=== PATIENT | female | born 1955 | race African-American/Black ===

== ENCOUNTER 2017-05-08 11:01 | Inpatient (IN) | payer OTHER ==
[~2017-05-08] VITALS: Ht 167.6 cm; Wt 89.8 kg
[~2017-05-08 11:01] MED LIST: COLACE100 MG PO; CYMBALTA60 MG PO; HYDROCODONE-AP1 EAC6 PO; KEFLEX500 MG PO; NEURONTIN 300300 M1 PO; NORCO 5-325 TA1 EACH PO; REMERON 30 MG T30 M1 PO; TRAMADOL 50 MG50 MG PO; TRAVATAN Z2.5 ML OPHTHALMIC; VALIUM5 MG PO; XANAX1 MG PO; ZOLPIDEM TARTRA10 MG PO
[2017-05-08 11:02] VITALS: BP 160/86
[2017-05-08 11:43] LABS: URINE BILIRUBIN NEGATIVE (Negative); URINE BLOOD NEGATIVE (Negative); URINE COLOR YELLOW; URINE GLUCOSE-RANDOM* NEGATIVE (Negative); URINE KETONES NEGATIVE (Negative); URINE NITRITE NEGATIVE (Negative); URINE PROTEIN (DIPSTICK) NEGATIVE (Negative); URINE SPECIFIC GRAVITY 1.015 (1.003-1.035); URINE UROBILINOGEN 0.2 E.U./dl (0.2-1.0)
[2017-05-08 11:52] LABS: ABSOLUTE NEUTROPHILS 7.6 thou/uL (1.4-8.2); BASOPHILS 0.9 % (0.0-2.0); HEMATOCRIT 35.1 % (37.0-47.0); HEMOGLOBIN 11.8 gm/dL (12.0-15.0); LYMPHOCYTES 17.1 % (24.0-44.0); MANUAL DIFF NO; MCH 26.8 pg (26.0-34.0); MCHC 33.8 g/dL (28.0-37.0); MCV 79.3 fL (80.0-100.0); PLATELET COUNT 377 thou/uL (150-400); RBC 4.42 mil/uL (4.20-5.00); RDW 18.8 % (10.5-14.5); WBC 10.1 thou/uL (4.0-11.0)
[2017-05-08 11:59] LABS: CALCIUM 9.6 mg/dL (8.5-10.1); CREATININE 1.1 mg/dL (0.6-1.0); POTASSIUM 4.2 mmol/L (3.5-5.1)
[2017-05-08 12:05] LABS: PROTIME 9.9 Seconds (9.3-11.4)
[2017-05-08 12:06] LABS: ALBUMIN 3.9 g/dL (3.4-5.0); MAGNESIUM 1.8 mg/dL (1.8-2.4); PHOSPHORUS 3.2 mg/dL (2.5-4.9); TOTAL BILIRUBIN 0.4 mg/dL (<0.1-1.0); TOTAL PROTEIN 7.9 g/dL (6.4-8.2)
[2017-05-08] MEDS ORDERED: CYMBALTA30 MG PO (12:06)
[2017-05-08] MEDS ORDERED: NEURONTIN 300300 M1 PO (12:06)
[2017-05-08] MEDS ORDERED: NORVASC5 MG PO (12:06)
[2017-05-08] MEDS ORDERED: XANAX1 MG PO (12:07)
[2017-05-08] MEDS ORDERED: REMERON15 MG PO (12:07)
[2017-05-08 13:33] VITALS: BP 151/84
[2017-05-08 14:13] VITALS: BP 134/75
[2017-05-08 14:30] VITALS: BP 158/80
[2017-05-08 20:30] VITALS: BP 129/71
[2017-05-08 23:20] VITALS: BP 116/51
[2017-05-09 00:22] LABS: ABSOLUTE NEUTROPHILS 4.9 thou/uL (1.4-8.2); BASOPHILS 1.3 % (0.0-2.0); EOSINOPHILS 1.3 % (0.0-3.0); HEMOGLOBIN 10.1 gm/dL (12.0-15.0); LYMPHOCYTES 25.7 % (24.0-44.0); MCH 26.7 pg (26.0-34.0); MCHC 33.5 g/dL (28.0-37.0); MCV 79.7 fL (80.0-100.0); MONOCYTES 7.5 % (1.0-8.0); PLATELET COUNT 330 thou/uL (150-400); POLYS 64.2 % (36.0-66.0); RBC 3.76 mil/uL (4.20-5.00); WBC 7.7 thou/uL (4.0-11.0)
[2017-05-09 00:41] LABS: MANUAL DIFF NO
[2017-05-09 04:25] VITALS: BP 115/65
[2017-05-09 08:00] VITALS: BP 118/68
[2017-05-09 16:00] VITALS: BP 125/71
[2017-05-09 20:20] VITALS: BP 124/71
[2017-05-10 04:33] VITALS: BP 115/67
[2017-05-10 07:39] VITALS: BP 115/67
[2017-05-10] MEDS ORDERED: LEVAQUIN 500 M500 M2 PO (08:38)
[2017-05-10 12:36] VITALS: BP 115/67
== END 2017-05-10 13:33 | disposition home or self-care (01) | DRG 815 ==
LOC: ER 11:01 → 3N 13:34 → EROBS 13:34 → 3N 14:13 → ENTRNSPT 05-10 13:24 → EDTRNSPTSTS 05-10 13:29 → 3N 05-10 13:33
PROVIDERS: Hospitalist; Physician Assistant
DX: D89.9 Disorder involving the immune mechanism, unspecified (principal); R65.10 Systemic inflammatory response syndrome (SIRS) of non-infectious origin without acute organ dysfunction; C50.919 Malignant neoplasm of unspecified site of unspecified female breast; I10 Essential (primary) hypertension; B34.9 Viral infection, unspecified; Z90.12 Acquired absence of left breast and nipple; Z88.8 Allergy status to other drugs, medicaments and biological substances
CPT/HCPCS: 10795